=== PATIENT | male | born 1990 | race Caucasian/White ===

== ENCOUNTER → 2024-12-24 | Outpatient (CLI) | payer SELFPAY ==
--- NOTE | 2024-12-24 12:05 | RAD_ITS ---
PROCEDURE: L/S SPINE MIN 4 VIEWS 12/24/2024 REASON FOR EXAM: SEGMENTAL AND SOMATIC DYSFUNCTION OF LUMBAR REGION TECHNIQUE: Five views; AP, bilateral oblique, lateral and coned-down L5-S1 view COMPARISON: None available FINDINGS: 5 [id number] lumbar vertebral body types identified. No evidence of spondylolysis. No fracture or malalignment. The disc spaces appear within limits. RAD/L/S Spine Min 4 Views IMPRESSION: Study appears within limits. Reading Location: [id number]
== END | disposition home or self-care (01) ==
PROVIDERS: Referring Provider Chiropractor Orthopedic; Visit Provider Chiropractor Orthopedic
DX: M99.03 Segmental and somatic dysfunction of lumbar region (principal)
CPT/HCPCS: 72110